=== PATIENT | male | born 1955 | race Caucasian/White ===

== ENCOUNTER 2018-08-13 17:09 | Emergency (ER) | payer OTHER ==
[~2018-08-13] VITALS: Ht 180.3 cm; Wt 83.9 kg
[2018-08-13 17:43] LABS: ABSOLUTE NEUTROPHILS 15.2 thou/uL (1.4-8.2); BASOPHILS 0.5 % (0.0-2.0); HEMATOCRIT 52.6 % (42.0-52.0); HEMOGLOBIN 18.3 gm/dL (14.0-18.0); LYMPHOCYTES 5.5 % (24.0-44.0); MCH 34.5 pg (26.0-34.0); MCHC 34.8 g/dL (28.0-37.0); MONOCYTES 5.7 % (1.0-8.0); PLATELET COUNT 223 thou/uL (150-400); POLYS 88.3 % (36.0-66.0); RBC 5.31 mil/uL (4.50-6.00); RDW 12.8 % (10.5-14.5); WBC 17.3 thou/uL (4.0-11.0)
[2018-08-13 17:46] LABS: CALCIUM 9.3 mg/dL (8.5-10.1); POTASSIUM 4.1 mmol/L (3.5-5.1)
[2018-08-13 17:52] LABS: ALBUMIN 3.9 g/dL (3.4-5.0); TOTAL BILIRUBIN 0.5 mg/dL (<0.1-1.0); TOTAL PROTEIN 7.6 g/dL (6.4-8.2)
[2018-08-13 19:08] LABS: URINE CLARITY CLEAR; URINE COLOR YELLOW; URINE PROTEIN (DIPSTICK) 1+ (Negative); URINE SPECIFIC GRAVITY > 1.030 (1.005-1.035)
[2018-08-13 19:09] LABS: ICTOTEST (BILI CONFIRMATORY) Negative (Negative); URINE BILIRUBIN NEGATIVE (Negative); URINE BLOOD NEGATIVE (Negative); URINE GLUCOSE-RANDOM* NEGATIVE (Negative); URINE KETONES NEGATIVE (Negative); URINE LEUKOCYTES-REFLEX NEGATIVE (Negative); URINE NITRITE-REFLEX NEGATIVE (Negative)
[2018-08-13 19:12] LABS: SQUAMOUS 0-3 Few /LPF (0-3)
[2018-08-13 19:13] LABS: URINE WBC-REFLEX 0-5 Rare /HPF (0-5)
[2018-08-13 19:14] LABS: BACTERIA-REFLEX None Seen /HPF (None Seen); CASTS None Seen /LPF (None Seen); CRYSTALS None Seen /LPF (None Seen); MUCUS >6 Heavy strn/LPF (None Seen); URINE RBC 0-2 Rare /HPF (0-2)
[2018-08-13] MEDS ORDERED: TESSALON PERLE100 MG PO (19:38)
[2018-08-13] MEDS ORDERED: PROVENTIL HFA6.7 G1 INH (19:38)
[2018-08-13] MEDS ORDERED: DOXYCYCLINE 10100 MG PO (19:38)
[2018-08-13] MEDS ORDERED: MOBIC15 MG PO (19:41)
[2018-08-13 20:13] VITALS: BP 171/114
--- NOTE | 2018-08-13 22:06 | EKG ---
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 : 1955 Requested By: Sergio Jorge Order Number: [id number] MD: Kevin Fregoso Measurements Intervals [place] Rate: 128 P: 40 [place]: 145 QRS: 83 QRSD: 98 T: -42 QT: 310 QTc: 453 Interpretive Statements Sinus tachycardia Borderline right axis deviation Probable left ventricular hypertrophy Nonspecific T abnormalities, inferior leads No previous ECG available for comparison Electronically Signed On 08-13-2018 22:05:45 ENROBING MACHINE OPERATOR by Kevin Fregoso [email or web address] <ELECTRONICALLY SIGNED> By: Kevin Fregoso MD 08/13/18 [id number] Kevin Fregoso MD /FARHAT
== END 2018-08-13 20:13 | disposition home or self-care (01) ==
LOC: ER 17:09
PROVIDERS: Physician Assistant
DX: J18.9 Pneumonia, unspecified organism (principal); F17.210 Nicotine dependence, cigarettes, uncomplicated; I10 Essential (primary) hypertension

== ENCOUNTER 2018-08-14 10:45 | Inpatient (IN) | payer OTHER ==
[~2018-08-14] VITALS: Ht 180.3 cm; Wt 108.8 kg
--- NOTE | ~2018-08-14 | HC ---
[facility] [place] [address] CONSULTATION Name: ANNABEL MUNOZ Room #: 211-P ADM IN M.R.#: [id number] Admission: 08/14/18 Attend Phys: Delano Horner MD Discharge: Date of : 55 Report #: [id number] THIS REPORT FOR: //name// CC: CHRISTIAN physician/PCP Delano Horner DATE OF SERVICE: 09/02/2018 CARDIOLOGY CONSULTATION REASON FOR CONSULTATION: Nonsustained VT. HISTORY OF PRESENT ILLNESS: The patient is a 62-year-old, with a history of tobacco abuse, who was admitted with fever, hemoptysis, underwent a CT scan on 08/14/2018 showing bilateral PEs. He was started on Eliquis therapy. He then developed a spontaneous pneumothorax as well as hemothorax. On 08/28/2018, underwent a bronchoscopy with right-sided VATS procedure with right thoracotomy and decortication had 2 chest tubes in. He developed worsening anemia and his anticoagulation was discontinued and he had an IVC filter placed. He has been improving over the past several days. This morning, he had a run of nonsustained VT lasting about 13 beats. He had no symptoms associated with this. He denies any chest pain or chest tightness. He denies PND or orthopnea. He denies presyncope or syncope. REVIEW OF SYSTEMS: Twelve-point review of systems: GENERAL: No fevers or chills. HEENT: No blurred vision or sore throat. CARDIOVASCULAR: As above. PULMONARY: No more hemoptysis. Breathing is improved. GASTROINTESTINAL: No nausea or vomiting. GENITOURINARY: No dysuria. MUSCULOSKELETAL: No myalgias or arthralgias. ENDOCRINE: No heat or cold intolerance. NEUROLOGIC: No focal weakness or stroke-like symptoms. PAST MEDICAL HISTORY: As per above. SOCIAL HISTORY: He quit smoking since hospitalized. FAMILY HISTORY: Noncontributory. ALLERGIES: None. MEDICATIONS: Include nebulizers, prednisone, lisinopril, amlodipine and he is off anticoagulation. [facility] [address] [place] [address] CONSULTATION Name: ANNABEL MUNOZ Room #: 211-[facility] [place] ..#: [id number] Admission: 08/14/18 Attend Phys: Delano Horner MD Discharge: Date of : 55 Report #: [id number] PHYSICAL EXAMINATION: VITAL SIGNS: Temperature is 37.6, pulse 112, respiratory rate 18, blood pressure 105/63, sats are 95% on room air. GENERAL: He is a thin male, older than stated age, in no acute distress. HEENT: Oropharynx is clear. Sclerae are anicteric. NECK: Supple. No thyromegaly or carotid bruits. HEART: Regular rate and rhythm with no murmurs, rubs or gallops. LUNGS: Clear to auscultation bilaterally. ABDOMEN: Soft, nontender, nondistended with no hepatosplenomegaly. EXTREMITIES: There is no clubbing, cyanosis or edema. Cranial nerves 2-12 are intact. LABORATORY DATA: White count 10, hemoglobin 11, platelets 278. Chemistry: Sodium 139, potassium 4.2, BUN 15, creatinine 0.9. Troponin is negative. ProBNP is 600. Telemetry shows sinus rhythm in the run of nonsustained VT. This was asymptomatic. His echocardiogram shows structurally normal heart. EF 55-60%, no regional wall motion abnormalities, no significant valvular disease. His 12-lead EKGs I have reviewed showed normal sinus rhythm with no ischemic changes. ASSESSMENT AND PLAN: 1. Nonsustained ventricular tachycardia. 2. Pulmonary embolism. 3. Deep venous thrombosis. 4. Hemoptysis. 5. Spontaneous pneumothorax. 6. Hemothorax secondary to pulmonary embolism. 7. IVC filter placement. 8. Chronic obstructive pulmonary disease. 9. Tobacco abuse. 10. Hypertension. PLAN: In summary, the patient is a 62-year-old with a run of nonsustained ventricular tachycardia. There is no ischemia per EKG. He has a structurally normal heart by echocardiogram. This is likely idiopathic nonsustained ventricular tachycardia that is asymptomatic. We will monitor on telemetry. We will optimize his electrolytes. Can consider an outpatient stress test in the future. By: [id number] [id number] Kevin Fregoso MD /nt
--- NOTE | ~2018-08-14 | HC ---
[facility] [place] [address] CONSULTATION Name: ANNABEL MUNOZ Room #: 211-P ADM IN M.R.#: [id number] Admission: 08/14/18 Attend Phys: Delano Horner MD Discharge: Date of : 55 Report #: [id number] THIS REPORT FOR: //name// CC: CHRISTIAN physician/PCP Delano Horner DATE OF SERVICE: 09/04/2018 IDENTIFYING INFORMATION: This is a 62-year-old male. HISTORY OF PRESENT ILLNESS: The patient was admitted with some respiratory discomfort. He notes that he was not sure if anything was the matter, so he walked down [facility] to have a friend of his check him out. He notes after a brief exam, they decided he needed to go to the hospital. He was having worsening shortness of breath and hemoptysis. The chest x-ray noted that there was possible pneumonia, so now the patient has had a several-week stay that has included management of pneumonia as well as anemia, hypertension, arrhythmia and hemoptysis. He notes he has been getting a bit depressed, anxious and frustrated because "I thought I would only be in here a couple of days." He has been using alprazolam on a p.r.n. basis and notes that "I feel it helps my pain too." PAST PSYCHIATRIC HISTORY: He has briefly had some interventions for depression and anxiety in the past. He notes that ultimately, he did not care for those medications because "they made as to he could not experience pleasure from anything, even music." FAMILY HISTORY: Denies. ALLERGIES: No known medication allergies. CURRENT MEDICATIONS: Include alprazolam 0.5 every 6 hours, prednisone taper, hydrocodone 2 every 4 hours as needed, Protonix 40 daily, albuterol inhaler, Zofran p.r.n. SOCIAL HISTORY: He lives alone. He has some family members who are supportive. 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 He has been dependent on nicotine, but wants to quit. He notes on residential, his alcohol use may have increased. He is planning on not returning to this either. MENTAL STATUS EXAMINATION: male, casually dressed, depressed mood, slightly anxious. Normal rate and rhythm in speech, he is articulate. No suicidal ideation, no homicidal ideation. No hallucinations, no delusions. Insight and judgment fair. DIAGNOSES: Major depressive disorder, recurrent, mild generalized anxiety [facility] [address] [place] [address] CONSULTATION Name: ANNABEL MUNOZ Room #: 211-P [facility] IN .R.#: [id number] Admission: 08/14/18 Attend Phys: Delano Horner MD Discharge: Date of : 55 Report #: [id number] disorder. RECOMMENDATIONS: Would recommend escitalopram, the generic for Lexapro, which can help with depression and anxiety. He seems to understand the risks of alprazolam as well as opioids as far as tolerance and dependence and will try to limit use of these. Also notable that he had a past trial of buspirone, but cannot remember if it was well tolerated or not. By: [id number] Billy Yung MD /nt
[~2018-08-14 10:45] MED LIST: DOXYCYCLINE 10100 MG PO; MOBIC15 MG PO; PROVENTIL HFA6.7 G1 INH; TESSALON PERLE100 MG PO
[2018-08-14 10:46] VITALS: BP 152/106
[2018-08-14 11:13] LABS: ABSOLUTE NEUTROPHILS 15.2 thou/uL (1.4-8.2); BASOPHILS 0.5 % (0.0-2.0); EOSINOPHILS 0.4 % (0.0-3.0); HEMATOCRIT 51.5 % (42.0-52.0); HEMOGLOBIN 17.7 gm/dL (14.0-18.0); LYMPHOCYTES 6.6 % (24.0-44.0); MCH 34.2 pg (26.0-34.0); MCHC 34.4 g/dL (28.0-37.0); MCV 99.4 fL (80.0-100.0); MONOCYTES 8.1 % (1.0-8.0); PLATELET COUNT 196 thou/uL (150-400); POLYS 84.4 % (36.0-66.0); RBC 5.18 mil/uL (4.50-6.00); RDW 13.1 % (10.5-14.5)
[2018-08-14 11:23] LABS: ANION GAP 12 mmol/L (7-16); BUN 11 mg/dL (7-18); CALCIUM 9.6 mg/dL (8.5-10.1); CHLORIDE 100 mmol/L (98-107); CO2 23 mmol/L (21-32); GLUCOSE 112 mg/dL (74-106); SODIUM 135 mmol/L (136-145)
[2018-08-14 11:31] LABS: ALBUMIN 3.7 g/dL (3.4-5.0); SGOT 17 U/L (15-37); SGPT 22 U/L (30-65); TOTAL PROTEIN 7.7 g/dL (6.4-8.2); TROPONIN-I <0.06 ng/mL (<0.06)
[2018-08-14 12:04] LABS: BE(vivo) -1.7 mmol/L (-2 to +3); HCO3 22.7 mmol/L (22.0-26.0); PCO2 37.5 mmHg (35.0-45.0); PO2 72.9 mmHg (80.0-100.0); pH 7.399 (7.360-7.450); sO2 94.7 % (92.0-98.0)
[2018-08-14 12:55] VITALS: BP 157/110
--- NOTE | 2018-08-14 13:24 | EKG ---
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: MAYNORRowdy : 1955 Requested By: Kasia Peters Order Number: [id number] MD: Kevin Fregoso Measurements Intervals [place] Rate: 127 P: 54 NC: 154 QRS: 68 QRSD: 98 T: -40 QT: 312 QTc: 454 Interpretive Statements Sinus tachycardia Probable left atrial enlargement Left ventricular hypertrophy Borderline T abnormalities, inferior leads Compared to ECG 08/13/2018 17:13:01 No significant changes Electronically Signed On 08-14-2018 13:24:31 TRAFFIC LINE PAINTER by Kevin Fregoso [email or web address] <ELECTRONICALLY SIGNED> By: Kevin Fregoso MD 08/14/18 1324 1107 06 Kevin Fregoso MD /FARHAT
[2018-08-14 13:31] VITALS: BP 165/98
[2018-08-14 14:20] VITALS: BP 169/100
--- NOTE | 2018-08-14 17:40 | NUR ---
[facility] A/O X4. SOB WITH EXERTION. C/O RIGHT BACK PAIN WITH COUGH. AFEBRILE. VSS. UP STANDBY. WILL KEEP MONITOR.
[2018-08-14 20:00] VITALS: BP 192/123
[2018-08-15] VITALS (8 sets, daily range): BP systolic 144–195; BP diastolic 96–131
[2018-08-15 04:22] LABS: CALCIUM 9.7 mg/dL (8.5-10.1); CREATININE 0.8 mg/dL (0.7-1.3); MAGNESIUM 1.9 mg/dL (1.8-2.4); POTASSIUM 4.3 mmol/L (3.5-5.1)
[2018-08-15 04:23] LABS: ABSOLUTE NEUTROPHILS 16.1 thou/uL (1.4-8.2); BASOPHILS 0.3 % (0.0-2.0); HEMATOCRIT 50.1 % (42.0-52.0); HEMOGLOBIN 16.8 gm/dL (14.0-18.0); LYMPHOCYTES 3.5 % (24.0-44.0); MCH 33.8 pg (26.0-34.0); MCHC 33.5 g/dL (28.0-37.0); MCV 100.8 fL (80.0-100.0); MONOCYTES 4.4 % (1.0-8.0); PLATELET COUNT 186 thou/uL (150-400); POLYS 91.8 % (36.0-66.0); RBC 4.97 mil/uL (4.50-6.00); RDW 13.6 % (10.5-14.5); WBC 17.6 thou/uL (4.0-11.0)
--- NOTE | 2018-08-15 07:59 | NUR ---
patient is alert and oriented. patient is sba patient calls appropiately. patient is not to walk in josue per dr catalan. patient is achs accu-cheks due to steroids. patient is on 2l nc which is not base line. patients pain is controlled with pain medication. patients blood pressure runs high. patient got 3 doses of hydralizine. patient is on a heparin drip. paitent is resting comfortabley in bed. wcm. patient is progressing to goals.
--- NOTE | 2018-08-15 13:17 | NUR ---
INITIAL ASSESSMENT: Pt evaluated for d/c planning needs. Reviewed chart and spoke with nurse and pt. Pt is alert and oriented. Pt lives alone and was independent with ADL's prior to admission. 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 Pt uses no DME and has not had home health in the past. Pt plans on returning home on d/c from hospital. Will remain available to assist as needed.
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
[2018-08-15 20:51] LABS: URINE BILIRUBIN NEGATIVE (Negative); URINE BLOOD NEGATIVE (Negative); URINE CLARITY CLEAR; URINE COLOR YELLOW; URINE GLUCOSE-RANDOM* NEGATIVE (Negative); URINE KETONES NEGATIVE (Negative); URINE NITRITE-REFLEX NEGATIVE (Negative); URINE PROTEIN (DIPSTICK) NEGATIVE (Negative); URINE UROBILINOGEN 0.2 E.U./dl (0.2-1.0)
[2018-08-15 20:52] LABS: URINE LEUKOCYTES-REFLEX NEGATIVE (Negative)
[2018-08-16] VITALS (7 sets, daily range): BP systolic 143–172; BP diastolic 86–119
[2018-08-16 04:13] LABS: CALCIUM 9.5 mg/dL (8.5-10.1); CREATININE 0.8 mg/dL (0.7-1.3); HEMATOCRIT 46.6 % (42.0-52.0); HEMOGLOBIN 15.8 gm/dL (14.0-18.0); MCHC 33.9 g/dL (28.0-37.0); MCV 100.3 fL (80.0-100.0); POTASSIUM 4.2 mmol/L (3.5-5.1); RBC 4.65 mil/uL (4.50-6.00); RDW 13.2 % (10.5-14.5); WBC 21.3 thou/uL (4.0-11.0)
--- NOTE | 2018-08-16 04:42 | NUR ---
PAITENT ALERT AND ORIENTED. PATIENT IS UP AD MARK. PATIENT NEEDED ONE DOSE OF PAIN MED AND ANXIETY MEDICATIONS THIS SHIFT. PATIENTS PAIN IS GETTING UNDER CONTROL NOW. PATIENT IS ON HEPARIN DRIP DOSE HAD TO BE INCREASED. PATIENT IS ON 4L NC. PATIENT HAS LOTS OF ANXITY ABOUT INSURANCE PAYING FOR ANTICOAGULANT AND PE IN LUNGS. PATIENTS BLOOD PRESSURES HAVE STILL BEEN HIGH. PATIENT IS NSR TO ST. PATIENT IS RESTING COMFORTABLEY ANXIOUS TO GO HOME. WMC. PATIENT IS PROGRESSING TO GOALS.
--- NOTE | 2018-08-16 17:17 | NUR ---
PT IS RESTED COMFORTABLY IN BED THIS SHIFT. HEPARIN GTT INFUSING PER PROTOCOL. PT C/O OF BACK AND CHEST PAIN AND WAS MEDICATED PER OCT. BP STABLE THIS SHIFT. 4L 02 VIA NC. PT REQUIRES SBA TO BR. PT IS PROGRESSING TOWARD POC GOALS, WILL CONTINUE TO MONITOR THROUGHOUT SHIFT.
[2018-08-17] VITALS (7 sets, daily range): BP systolic 141–175; BP diastolic 90–115
--- NOTE | 2018-08-17 02:06 | NUR ---
resting quietly now, after taking his prescribed anti-anxiety medication. continues on iv heparin as per protocal. calls for assist out of bed. using the urinal most of the time so her stays close to the bedside. no other concerns voiced. careplan reviewed.
[2018-08-17 05:52] LABS: PROTIME 9.4 Seconds (9.3-11.4)
[2018-08-17 10:11] LABS: HEMATOCRIT 44.2 % (42.0-52.0); MCH 33.6 pg (26.0-34.0); MCV 98.7 fL (80.0-100.0); RBC 4.48 mil/uL (4.50-6.00); RDW 13.5 % (10.5-14.5); WBC 17.2 thou/uL (4.0-11.0)
[2018-08-17 10:23] LABS: CALCIUM 9.7 mg/dL (8.5-10.1); CREATININE 0.9 mg/dL (0.7-1.3); MAGNESIUM 2.1 mg/dL (1.8-2.4); POTASSIUM 3.7 mmol/L (3.5-5.1)
--- NOTE | 2018-08-17 15:04 | NUR ---
Assumed care of patient at 0700. Vitals have been stable - BP elevated this morning. Hydralazine PRN given and Amlodipine started. Recheck shows improvement. Complaints of headache this afternoon, Tylenol administered. Patient also has PRN Xanax for anxiety. Remains on 3L NC, still SOB at times, especially with exertion, but patient feels is starting to improve. Encouraging deep breathing and coughing. Remains on IV antibiotics. Voiding per urinal. Remains on heparin gtt, therapeutic last evening. Will redraw again tonight, but heparin gtt discontinued and started on Eliquis BID. First dose given this afternoon before discontinuing heparin gtt. Patient up with SBA, fall precautions in place. Patient is anxious to discharge, but understands needing to be well enough before going home. Slowly progressing towards POC. Will continue to monitor.
[2018-08-18 04:05] VITALS: BP 183/118
--- NOTE | 2018-08-18 04:40 | NUR ---
SLEPT PART OF SHIFT. UP AT BEDSIDE TO VOID PER URINAL. MAINTAIN SAFE ENVIRONMENT. NO PRESENT COMPLAINTS OF PAIN. BLOOD PRESSURE ELEVATED AND PRN HYDRALIZINE GIVEN. MONITOR BLOOD PRESSURE NEEDED. WORKING ON GOALS AND PLAN OF CARE FOR NOC. PROGRESSING SLOWLY TOWARDS DISCHARGE GOALS. CONTINUE TO ASSES. NO BOWEL MOVEMENT SINCE THE 08/13/18. STATES WANTS MYRLAX WITH BREAKFAST.
[2018-08-18 05:32] LABS: HEMATOCRIT 44.1 % (42.0-52.0); HEMOGLOBIN 14.6 gm/dL (14.0-18.0); MCH 33.3 pg (26.0-34.0); MCHC 33.2 g/dL (28.0-37.0); MCV 100.4 fL (80.0-100.0); RBC 4.4 mil/uL (4.50-6.00); RDW 13.3 % (10.5-14.5); WBC 13.2 thou/uL (4.0-11.0)
[2018-08-18 05:53] LABS: CALCIUM 9.4 mg/dL (8.5-10.1); CREATININE 0.8 mg/dL (0.7-1.3); MAGNESIUM 2.2 mg/dL (1.8-2.4); POTASSIUM 3.7 mmol/L (3.5-5.1)
[2018-08-18 06:00] VITALS: BP 159/95
[2018-08-18 07:48] VITALS: BP 166/104
[2018-08-18 11:14] VITALS: BP 177/110
[2018-08-18 16:00] VITALS: BP 153/101
--- NOTE | 2018-08-18 16:18 | NUR ---
Assumed care of patient at 0700. BP elevated this shift; hydralazine administered PRN and BP scheduled meds adjusted per physician. Otherwise, VSS. Patient maintains oxygen saturations around 92-94% on RA. Some slight SOB with exertion, but for the most part, patient denies feeling SOB. This morning, patient reports feeling bad today - weak and dizzy at times, nauseous. Zofran administered and Miralax given this morning with BM this afternoon. Reports feeling better, improved nausea and bloating. Still feeling weak and not great this afternoon. Updated Dr. Weinstein and Dr. Mitchell; to monitor patient overnight and attempt discharge tomorrow. Patient up with SBA to bathroom. Calls appropriately. To walk hallways with nursing this evening. Attempting to progress towards POC. Will continue to monitor.
[2018-08-18 19:40] VITALS: BP 130/89
[2018-08-19] VITALS (7 sets, daily range): BP systolic 148–174; BP diastolic 94–116
--- NOTE | 2018-08-19 03:41 | NUR ---
SLEPT PART OF SHIFT. DENIES NEED FOR PAIN MEDICATION THIS SHIFT. STATES STILL WEAK AND SHORT OF AIR AT TIMES. O2 SATS 90-91%. UP WITH STANDBY ASSIST. WORKING ON GOALS AND PLAN OF CARE FOR NOC. PROGRESSING SLOWLY TOWARDS DISCHARGE GOALS. CONTINUE TO ASSES CLOESLY.
[2018-08-19 06:01] LABS: HEMOGLOBIN 14.9 gm/dL (14.0-18.0); MCH 33.2 pg (26.0-34.0); MCHC 33.1 g/dL (28.0-37.0); MCV 100.5 fL (80.0-100.0); RBC 4.47 mil/uL (4.50-6.00); RDW 13.6 % (10.5-14.5); WBC 13.3 thou/uL (4.0-11.0)
[2018-08-19 06:10] LABS: CALCIUM 9.3 mg/dL (8.5-10.1); CREATININE 0.7 mg/dL (0.7-1.3); MAGNESIUM 2.4 mg/dL (1.8-2.4); POTASSIUM 4.5 mmol/L (3.5-5.1)
--- NOTE | 2018-08-19 16:44 | NUR ---
Assumed care of Pt at 0700. Pt AOx3 in no acute distress. 88% SPO2 this AM - supplemental O2 provided. later on able to maintain SPO2 >90% on room air. rales noted to right base. CXR showing developing infiltrates/effusion. up w/ SBA. pt progressing toward poc goals.
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
[2018-08-20 05:20] VITALS: BP 172/106; BP 174/111
[2018-08-20 05:58] LABS: HEMATOCRIT 42.4 % (42.0-52.0); HEMOGLOBIN 14.4 gm/dL (14.0-18.0); MCH 33.7 pg (26.0-34.0); MCV 99.1 fL (80.0-100.0); RBC 4.28 mil/uL (4.50-6.00); RDW 13.5 % (10.5-14.5); WBC 14.6 thou/uL (4.0-11.0)
[2018-08-20 06:06] LABS: CALCIUM 8.6 mg/dL (8.5-10.1); CREATININE 0.7 mg/dL (0.7-1.3); MAGNESIUM 2.3 mg/dL (1.8-2.4); POTASSIUM 3.9 mmol/L (3.5-5.1)
[2018-08-20 07:30] VITALS: BP 165/115
[2018-08-20 11:22] LABS: HEMATOCRIT 42.4 % (42.0-52.0); HEMOGLOBIN 13.8 gm/dL (14.0-18.0); MCH 32.6 pg (26.0-34.0); MCHC 32.6 g/dL (28.0-37.0); MCV 99.8 fL (80.0-100.0); RBC 4.24 mil/uL (4.50-6.00); RDW 13.8 % (10.5-14.5); WBC 13.1 thou/uL (4.0-11.0)
[2018-08-20 12:02] VITALS: BP 144/91
[2018-08-20 17:00] VITALS: BP 157/99
--- NOTE | 2018-08-20 19:00 | NUR ---
PT DENIES SHORTNESS OF AIR..PLACED ON 2L CONTINOUS PER DR VENTURA...POSSIBLE THORACENTESIS TOMORROW..GIVEN EDUCATION SHEET FOR PATIENT TO REVIEW...
[2018-08-20 19:40] VITALS: BP 141/99
[2018-08-21 02:57] LABS: CALCIUM 8.4 mg/dL (8.5-10.1); CREATININE 0.7 mg/dL (0.7-1.3); MAGNESIUM 2.2 mg/dL (1.8-2.4); POTASSIUM 3.5 mmol/L (3.5-5.1)
[2018-08-21 03:18] LABS: HEMATOCRIT 37.6 % (42.0-52.0); HEMOGLOBIN 12.5 gm/dL (14.0-18.0); MCH 33.1 pg (26.0-34.0); MCHC 33.3 g/dL (28.0-37.0); MCV 99.4 fL (80.0-100.0); RBC 3.79 mil/uL (4.50-6.00); RDW 13.6 % (10.5-14.5); WBC 14.8 thou/uL (4.0-11.0)
[2018-08-21 03:40] VITALS: BP 145/99
[2018-08-21 07:41] VITALS: BP 150/99
--- NOTE | 2018-08-21 11:02 | NUR ---
Nutrition: pt admitted with SOB, Right sided pneumothorax, acute PE/DVT. Seen for LOS. Thoracentesis cancelled this morning and diet resumed. Pt reports stable weights and fair appetite, eating about 50% of meals. Voices he isn't active so not as hungry as usual. Orders meals. Encouraged > 75% intake of meals to maintain nutritional status. Consider low risk.
[2018-08-21 11:29] VITALS: BP 109/67
--- NOTE | 2018-08-21 15:20 | NUR ---
SW reviewed chart and spoke with nursing and attending physician. Pt with spontaneous pneumothorax, which is related to pulmonary embolus. Pt reamins on O2 and may need a chest tube if pneumothorax does not improve. SW is following to assist as needed with discharge planning.
[2018-08-21 15:25] VITALS: BP 126/70
--- NOTE | 2018-08-21 17:45 | NUR ---
PATIENT RESTED IN ROOM. CONT ON HEPARIN AND NO BLEEDING NOTED AT THIS TIME. HE DID GET OUT OF BED A FEW TIMES AND AMBULATED ABOUT THE ROOM. THORACENTESIS WAS CANCELLED BY DR VENTURA THIS AM HE CHEST XRAY SHOWED IMPROVEMENT. WILL CONT WITH PLAN OF CARE.
[2018-08-21 20:35] VITALS: BP 122/83
[2018-08-22 04:26] VITALS: BP 144/90
--- NOTE | 2018-08-22 05:34 | NUR ---
ASSUMED PT CARE AROUND 1900. A&OX4. DENIES ANY PAIN. PT IS ANXIOUS AT TIMES AND REQUESTED HIS ANXIETY MEDICATION. PT IS PLEASANT AND COOPERATIVE. PT SLEPT MOST OF THE NIGHT. RESP EVEN AND UNLABORED. HEPARIN GTT INFUSING. VSS. AFEBRILE. PROGRESSING SLOWLY TOWARD POC GOALS. WILL CONTINUE TO MONITOR FURTHER.
[2018-08-22 07:27] VITALS: BP 146/102
[2018-08-22 11:20] VITALS: BP 142/95
--- NOTE | 2018-08-22 14:42 | NUR ---
Assumed care of patient at 0700. BP elevated this morning, but received scheduled medications and shows improvement. Otherwise, VSS. Denies pain. Feels that breathing is improving, still some slight SOB with exertion. Encouraging deep breathing and coughing. Remains on 2L NC due to pneumothorax. Up with SBA, encouraging increasing activity. Walked in hallways with nursing this afternoon. Dr. Weinstein rounded today and okay to discontinue heparin gtt and restart on Eliquis. Patient received dose this afternoon. Slowly progressing towards POC. Will continue to monitor.
[2018-08-22 15:23] VITALS: BP 118/77
--- NOTE | 2018-08-22 15:54 | NUR ---
SW reviewed chart and spoke with nursing and attending physician. Pt is slowly progressing towards goals for discharge. Pt with pneumothorax and remains on continuous O2. Pt may be discharged home on Eliquis. Heparin gtt was discontinued today. Discharge home is anticipated in 1-2 days. Pt does not have health insurance and is Medicaid pending. Pt may need O2 at time of discharge. KIRK is following to assist as needed with discharge planning.
--- NOTE | 2018-08-22 17:58 | NUR ---
Patient had BM this afternoon - stool appears to be black / possible dark green. Does not appear tarry but hard to determine in toilet. Updated Dr. Mitchell. To obtain occult blood on next stool. Updated patient.
[2018-08-22 19:06] VITALS: BP 120/75
--- NOTE | 2018-08-22 23:04 | NUR ---
PATIENT TAKEN OFF MONITOR TODAY TO SHOWER FROM 1640 TO 1740. MONITOR TURNED OFF AGAIN AT 1808 WITH EPIC CUPID ANALYST NOTICING PATIENT WAS NOT MONITORED TILL 2241.
[2018-08-23 04:01] VITALS: BP 120/82
[2018-08-23 05:46] LABS: HEMATOCRIT 34.8 % (42.0-52.0); MCH 34.6 pg (26.0-34.0); MCHC 34.5 g/dL (28.0-37.0); MCV 100.4 fL (80.0-100.0); RBC 3.47 mil/uL (4.50-6.00); RDW 13.6 % (10.5-14.5); WBC 14.4 thou/uL (4.0-11.0)
[2018-08-23 07:31] VITALS: BP 143/90
--- NOTE | 2018-08-23 07:50 | NUR ---
PATIENT IS PROGRESSING IN HIS CARE PLAN. VITAL SIGNS STABLE WITH PATIENT HAVING NO COMPLAINTS OF PAIN OR NAUSEA. PATIENT DID COMPLAIN OF ANXIETY WHICH NURSE TREATED WITH PRN MEDICATIONS. FULLY ORIENTED, PATIENT IS ABLE TO CALL APPROPRIATELY FOR REQUESTS. BREATHING STABLE ON OXYGEN ORDER EVIDENCED BY OXYGEN SATURATION IN ACCEPTABLE RANGE. PATIENT UNABLE TO HAVE BOWEL MOVEMENT DESPITE PRN MEDICATION. STILL AWAITING STOOL SAMPLE. UP MULTIPLE TIMES TO THE BATHROOM WITH ASSISTANCE INCIDENT FREE. CONTINUE PLAN OF CARE.
[2018-08-23 09:05] VITALS: BP 135/99
--- NOTE | 2018-08-23 11:16 | NUR ---
Patient to have US thoracentesis on Tuesday. Heparin gtt will need to be turned off 1 hour before thoracentesis performed. Radiology and nursing to be in touch to coordinate timing.
[2018-08-23 11:32] VITALS: BP 129/82
--- NOTE | 2018-08-23 12:21 | NUR ---
Spoke with Wade, pharmacist, regarding starting heparin drip. Since patient received PO Eliquis this morning, to be more conservative on starting heparin. aPtt received, 28.9. Communicated with Wade - no bolus and to begin drip at 15 units / kg /hr. Redraw aPtt in 6 hours. Then bolus and increase / decrease drip per protocol.
--- NOTE | 2018-08-23 15:30 | NUR ---
SW reviewed chart and spoke with nursing and attending physician. Pt will have an US thoracentesis on Tuesday. GI consulted due to low hemoglobin. Pt may need to have a chest tube placed. Pt remains on 2L continuous O2. [facility] is following to assist as needed with discharge planning.
[2018-08-23 15:35] VITALS: BP 137/96
[2018-08-23 19:37] VITALS: BP 145/95
--- NOTE | 2018-08-23 19:59 | NUR ---
Assumed care of patient at 0700. Vitals have been stable. Patient reports feeling improvement; denies SOB and pain. PRN Xanax for anxiety. Spoke with Dr. Weinstein this morning regarding follow up CXR and CT chest yesterday. Patient will need to have thoracentesis and possible chest tube. Spoke with radiology and plan for Tuesday at this time. Eliquis back on hold and heparin gtt initiated. See previous note regarding communication with pharmacist about initation of heparin gtt. Now following and titrating / bolus per protocol. Patient did walk hallways today and sat up in chair for lunch. Up with SBA. Voiding per urinal. Patient voices feeling down and depressed about still being in the hospital. Awaiting stool sample to test for occult blood - no BM today. Spoke with Dr. Horner and nadeem for onetime dose of Miralax this evening. Not yet progressing towards POC. Will continue to monitor.
[2018-08-24 02:00] LABS: HEMATOCRIT 34.2 % (42.0-52.0); HEMOGLOBIN 11.2 gm/dL (14.0-18.0); MCH 32.9 pg (26.0-34.0); MCHC 32.8 g/dL (28.0-37.0); MCV 100.1 fL (80.0-100.0); RBC 3.42 mil/uL (4.50-6.00); RDW 13.7 % (10.5-14.5); WBC 16.8 thou/uL (4.0-11.0)
[2018-08-24 03:14] LABS: CALCIUM 8.5 mg/dL (8.5-10.1); CREATININE 0.7 mg/dL (0.7-1.3)
[2018-08-24 04:52] VITALS: BP 150/87
--- NOTE | 2018-08-24 05:11 | NUR ---
PATIENT IS PROGRESSING IN HIS CARE PLAN. VITAL SIGNS STABLE WITH PATIENT HAVING NO COMPLAINTS OF NAUSEA. PATIENT DID COMPLAIN OF PAIN IN CHEST UPON DEEP INSPIRATION WHICH WAS TREATED EFFECTIVELY WITH MEDICATION. FULLY ORIENTED, PATIENT WAS ABLE TO CALL APPROPRIATELY FOR NEEDS. HE SEEMS DEPRESSED AND HAS COMPLAINED OF FEELING ANXIOUS AT TIMES AND HAS BEEN TREATED EFFECTIVELY. PATIENT ON HEPARIN GTT WHICH HAS BEEN TITRATED APPROPRIATELY. NPO STATUS FROM MIDNIGHT ON IN ANTICIPATION OF TODAYS PROCEDURE. PATIENT IS BREATHING EFFECTIVELY EVIDENCED BY SPOT OXYGENATION CHECKS. CONTINUE PLAN OF CARE.
[2018-08-24 07:41] VITALS: BP 139/94
[2018-08-24 12:09] VITALS: BP 125/76
[2018-08-24 14:33] VITALS: BP 130/86
--- NOTE | 2018-08-24 18:32 | NUR ---
ASSUMED PATIENT CARE AT 0715. HEPARIN GTT INFUSING PER PROTOCOL. NO CHANGES NEEDED ON REDRAW THIS SHIFT. THORACENTESIS SCHEDULED FOR TOMORROW. STAND BY ASSIST. ANXIOUS ABOUT PROCEDURE. CONSENT NEEDS TO BE SIGNED. PATIENT WANTING TO SPEAK WITH PERFORMING DOCTOR BEFORE SIGNING. SLOWLY WORKING TOWARD GOALS.
[2018-08-24 19:18] VITALS: BP 126/89
[2018-08-25 03:30] VITALS: BP 107/67
--- NOTE | 2018-08-25 04:11 | NUR ---
ASSUMED PT CARE AROUND 1900. A&OX4. PT STOOL WAS POSITIVE FOR OCCULT BLOOD. NOTIFIED AUTOMOBILE REPOSSESSOR MANAGEMENT RECRUITER FOR HOSPITALIST. GI CONSULTED PER ORDER. PAGED GI DR MANAGEMENT RECRUITER. PT REMAINS ON HEPARIN GTT. NO S/S BLEEDING NOTED. C/O INTERMITTENT NON-CARDIAC CHEST PAIN. HYDROCODONE GIVEN WITH SOME RELIEF. PT SLEPT MOST OF THE NIGHT. RESP EVEN AND UNLABORED. PROGRESSING SLOWLY TOWARD POC GOALS. WILL CONTINUE TO MONITOR FURTHER.
[2018-08-25 07:23] LABS: HEMATOCRIT 35.5 % (42.0-52.0); MCH 33.9 pg (26.0-34.0); MCHC 33.8 g/dL (28.0-37.0); MCV 100.3 fL (80.0-100.0); RBC 3.53 mil/uL (4.50-6.00); RDW 13.9 % (10.5-14.5); WBC 20.2 thou/uL (4.0-11.0)
[2018-08-25 07:36] LABS: CALCIUM 8.8 mg/dL (8.5-10.1); CREATININE 0.9 mg/dL (0.7-1.3); POTASSIUM 4.3 mmol/L (3.5-5.1)
--- NOTE | 2018-08-25 12:33 | NUR ---
ASSUMED PATIENT CARE AT 0715. A&OX4. COMPLAINTS OF NON-CARDIAC CHEST PAIN. NORCO GIVEN FOR PAIN. XANAX GIVEN FOR ANXIETY. THORACENTESIS TODAY WITH ONE LITER TAKEN OFF. BANDAID OVER SITE WITH NO DRAINAGE. STAND BY ASSIST. GI ON CASE DUE TO POSITIVE OCCULT BLOOD. ON HEPARIN GTT. NO CHANGES NEEDED THIS MORNING BUT WAS OFF GTT FOR TWO HOURS FOR THORACENTESIS. PATIENT ANXIOUS ABOUT HOW LONG THEY WILL BE HERE. SLOWLY WORKING TOWARDS DC GOALS. ABLE TO MAKE NEEDS KNOWN.
[2018-08-25 13:28] LABS: CLARITY TURBID; COLOR RED; SOURCE RIGHT THORACENTESIS; TOTAL VOLUME 64 mL
[2018-08-25 13:34] LABS: SOURCE RIGHT THORACENTESIS
[2018-08-25 13:40] LABS: BF NUCLEATED CELLS 4188; BF RBC 407287
--- NOTE | 2018-08-25 14:34 | NUR ---
SW reviewed chart and spoke with nursing and attending physician. GI consult due to positive occult blodd. Pt is on heparin gtt and continuous O2. Pt had thoracentesis today. Pt is slowly progressing towards goals for discharge. SW is following to assist as needed with discharge planning.
[2018-08-25 15:12] LABS: BF MACROPHAGE 2; BF NEUTROPHILS 68
[2018-08-25 15:28] VITALS: BP 95/60
[2018-08-25 19:45] VITALS: BP 113/79
[2018-08-26] VITALS: BP 98/65
[2018-08-26 04:00] VITALS: BP 114/78
--- NOTE | 2018-08-26 04:03 | NUR ---
PATIENT IS ON 2L NC. PATIENT IS ALERT AND ORIENTED. PATIENT IS ON HEPARIN DRIP. PATIENTS PAIN IS TREATED WITH PAIN MEDIACTION. PATIENT TAKE ANXIETY MEDICATION WELL. PATIENT IS UP AD MARK. PATIENT CALLS OUT APPROPIATELY. PATIENT RESTING COMFORTABLEY IN BED. WCM. PATIENT IS PROGRESSING TO GOALS.WCM.
[2018-08-26 07:30] VITALS: BP 111/73
[2018-08-26 08:04] LABS: HEMATOCRIT 36.5 % (42.0-52.0); HEMOGLOBIN 12.2 gm/dL (14.0-18.0); MCH 33.4 pg (26.0-34.0); MCHC 33.4 g/dL (28.0-37.0); RBC 3.65 mil/uL (4.50-6.00); RDW 14.1 % (10.5-14.5); WBC 23.9 thou/uL (4.0-11.0)
[2018-08-26 11:44] VITALS: BP 107/63
--- NOTE | 2018-08-26 13:43 | NUR ---
ASSUMED CARE OF PATIENT 0700. A/OX4, PLEASANT,CAMPLIANT WITH CARES, VSS, ABLE TO MAKE NEEDS KNONW. HEPARIN PER PROTOCOL, MONITORING FOR S/S. PT STATES HE'S TIRED. STEADY WITH BATHROOM PRIVILEDGES, CALL LIGHT IN REACH.
[2018-08-26 16:30] VITALS: BP 109/69
[2018-08-26 19:08] VITALS: BP 112/74
--- NOTE | 2018-08-27 02:45 | NUR ---
PATIENT IS ALERT AND ORIENTED. PATIENT IS UP AD MARK. PATIENT IS ON 2LNC. PATIENT IS NSR ON TELE. PATIENTS PAIN AND ANXIETY ARE TREATED WITH PAIN MEDICATION. PATIENT IS PENDING FOR POSSIBLE EGD FOR GI BLEED DUE TO OCCULT BLOOD. PATIENT IS ON HEPARIN DRIP AND HAS BEEN THERAPUTIC THE LAST COUPLE DAYS. PATIENT IS RESTING COMFORTABLEY IN BED. WCM. PATIENT IS PROGRESSING TO GOALS.
[2018-08-27 03:58] VITALS: BP 116/78
[2018-08-27 07:25] VITALS: BP 137/89
[2018-08-27 07:56] LABS: HEMATOCRIT 32.8 % (42.0-52.0); HEMOGLOBIN 11.2 gm/dL (14.0-18.0); MCH 33.9 pg (26.0-34.0); MCV 99.8 fL (80.0-100.0); RBC 3.29 mil/uL (4.50-6.00); RDW 13.7 % (10.5-14.5); WBC 21.2 thou/uL (4.0-11.0)
[2018-08-27 11:09] VITALS: BP 141/87
[2018-08-27 13:06] LABS: BODY FLUID AMYLASE 25 U/L (()); BODY FLUID GLUCOSE 55 mg/dL (()); BODY FLUID LDH 736 IU/L (()); BODY FLUID PROTEIN 3.1 g/dL (())
[2018-08-27 15:22] VITALS: BP 119/79
--- NOTE | 2018-08-27 18:40 | NUR ---
PT EDUCATED ON IVC FILTER WHICH WAS PLACED @ NOON TODAY TOP RT IJ..HASEEB C/D/I..ALSO WAS EDUCATED PER DR REGALADO AND DR WARNER REGARDING SURGERY TOMORROW AM..CONSENT SIGNED..
[2018-08-27 19:25] VITALS: BP 111/70
[2018-08-28 04:00] VITALS: BP 141/92
--- NOTE | 2018-08-28 05:35 | NUR ---
PT MAKING PROGRESS TOWARDS GOALS. ON O2 AT 3L PER NC THROUGHOUT THE NIGHT. PT STATED "I REALLY THINK I'VE IMPROVED ALOT." HAS DENIED ANY SOA WHILE AT REST. ENOURAGEMENT AND SUPPORT GIVEN FOR POSSIBLE THORACOTOMY TODAY.
[2018-08-28 05:36] LABS: HEMOGLOBIN 10.5 gm/dL (14.0-18.0); MCH 33.9 pg (26.0-34.0); MCV 99.7 fL (80.0-100.0); RBC 3.11 mil/uL (4.50-6.00)
[2018-08-28 05:51] LABS: CALCIUM 9.1 mg/dL (8.5-10.1); CREATININE 0.8 mg/dL (0.7-1.3); POTASSIUM 4.2 mmol/L (3.5-5.1)
--- NOTE | 2018-08-28 13:40 | NUR ---
FOLLOWING FOR DC PLANNING. CLINICAL INFO REVIEWED. PT IS IN ICU NOW POST RIGHT THORACOSCOPY AND RIGHT THORACOTOMY WITH DECORTICATION WITH FINDINGS OF LOCULATED PLEURAL EFFUSION AND NECROTIC AREA OF LOWER LOBE. WILL FOLLOW TO ASSIST WITH COORDINATION OF NEEDS AT DC, PT IS WITHOUT MEDICAL INSURANCE AND IN MEDICAID PENDING STATUS.
--- NOTE | 2018-08-28 13:52 | NUR ---
ASSUMED CARE OF PT AT 1220 THIS SHIFT. PT IS POST THOROCOTOMY, ARRIVED TO UNIT WITH 2 CHEST TUBES. PT IS COOPERATIVE, HOWEVER PT IS IN PAIN WITH PHENTANYL SUPERVISOR COMMERCIAL FISH HATCHERY PUMP. PT HAS AN ART LINE. PT ARRIVED ON 15L NONREBREATHER MASK.
--- NOTE | 2018-08-28 15:10 | NUR ---
SW reviewed chart and spoke with nursing and attending physician. Pt was transferred to ICU following VATS. Pt has Medicaid application pending per [employer]. SW is following to assist as needed with discharge planning.
[2018-08-28 19:22] VITALS: BP 118/76
[2018-08-29] VITALS (23 sets, daily range): BP systolic 101–140; BP diastolic 57–83
--- NOTE | 2018-08-29 04:44 | NUR ---
Pt is making some progress in this shift. Able to wean down O2 to 2 liters. Pulmonary toilets in progress. I/S, deep breathing and coughing hourly while awakes. Using fentanyl PRODUCT DEVELOPMENT ASSISTANT properly. Pain had been adequated control. No s/sx of any side effects indicates. CTs are inplaced. CTs#1 with very small air leak noted at times. Drainage is evp operations in color this am. Taking PO well, lalit full liquid diet. will advance him to regular diet. Cristian nesbitt, made great UO. Continue working toward goals.
[2018-08-29 04:45] LABS: HEMATOCRIT 30.2 % (42.0-52.0); HEMOGLOBIN 10.1 gm/dL (14.0-18.0); MCH 33.4 pg (26.0-34.0); MCHC 33.4 g/dL (28.0-37.0); RBC 3.02 mil/uL (4.50-6.00); RDW 13.8 % (10.5-14.5); WBC 17.8 thou/uL (4.0-11.0)
[2018-08-29 04:47] LABS: CALCIUM 9.1 mg/dL (8.5-10.1); CREATININE 0.6 mg/dL (0.7-1.3); POTASSIUM 4.2 mmol/L (3.5-5.1)
--- NOTE | 2018-08-29 09:09 | NUR ---
Followup: s/p VATS 08/28. ICU rounds, pt feeling better. BG controlled, has regular diet ordered. Wts up about 10-15 lb. Continue to encourage adequate po intake. Remains low nutrition risk
--- NOTE | 2018-08-29 13:18 | NUR ---
ASSUMED CARE OF PT AT 0700 THIS SHIFT. PT HAS BEEN COOPERATIVE, HAS BEEN HAVING PAIN FROM CHEST TUBE SITE, BUT MORE TOLERABLE TODAY. PT IS TOLERATING BEING ON 2L NC, AND STILL USING FENTANYL PLATE FINISHER PUMP. PT HAS HAD GOOD APPETITE THIS SHIFT. PT IS CURRENTLY RESTING COMFORTABLY IN ROOM.
--- NOTE | 2018-08-29 15:06 | PATH ---
[facility] [address] [address] PATHOLOGY RPT PROCEDURE Name: ANNABEL YO Room #: 240-P ADM IN M.R.#: [id number] Admission: 08/14/18 Date of : 55 Discharge: Report #: [id number] Path Case #: [id number] LCA Accession Number: [id number] . 01 Material submitted: . PART A: SUPERIOR SEGMENT RLL BIOPSY PART B: RIGHT PLEURAL EXUDATE . 01 Clinical history: . Right pleural effusion Clotted hemothorax . 02 Diagnosis: A. Lung, superior segment right lower lobe, bronchial biopsy: - Mild chronic inflammation. - Benign bronchial mucosa as well as cartilage. - Negative for dysplasia or malignancy. . B. Pleura, right pleural exudate: - Marked acute inflammation associated with fibrinoid degeneration, consistent with an exudate. - Pleural surface with reactive mesothelial hyperplasia and marked acute inflammation. . (IUV:mml; 08/29/2018) QLM/08/29/2018 . 02 Electronically signed: . Vida Alberto MD, Pathologist NPI- [id number] . 01 Gross description: . A. The specimen is received in formalin, labeled "Annabel Yo, superior segment right lower lobe biopsy" and consists of 2 fragments of mcconnell tissue measuring 0.3 x 0.3 x 0.2 cm each. They are entirely submitted in A1. . B. The specimen is received in formalin, labeled "Annabel Yo, right pleural exudate" and consists of multiple segments of purple-pink soft tissue admixed with clot measuring 9.8 x 9.0 x 2.5 cm in aggregate. Loom Starter tissue is submitted in B1-B2. (SDY; 08/28/2018) SYU/SYU . 02 Pathologist provided ICD-10: J98.4, J90 . 02 CPT . [address] [address] PATHOLOGY RPT PROCEDURE Name: ANNABEL YO Room #: 240-P ADM IN M.R.#: [id number] Admission: 08/14/18 Date of : 55 Discharge: Report #: [id number] Path Case #: [id number] Specimen Comment: A courtesy copy of this report has been sent to Specimen Comment: [phone], . Specimen Comment: Report sent to / DR REGALADO Performed at: [address], [employer], [place] [id number] MD Roddy Michele MD Phone: [phone] Performed at: [address] [id number] MD Vida Alberto MD Phone: [phone]
--- NOTE | 2018-08-29 15:53 | NUR ---
POD #1 RIGHT THORACOTOMY WITH DECORTICATION. CHEST TUBES REMAIN. ON 2 L NC O2WITH SAT IN UPPER 90'S. THERAPIES ORDERED. CM TO FOLLOW TO COORDINATE NEEDS AT [place].
--- NOTE | 2018-08-29 21:56 | NUR ---
GCS 15. A&O X4. FC, JOSE RAUL. COOPERATIVE. PLEASANT DEMEANOR. ANXIOUS AT TIMES. PAIN MANAGEMENT WITH FENTANYL WOOD ROOM SUPERVISOR. INCREASED PAIN WITH COUGHING, DEEP BREATHING, AND REPOSITIONING. SINUS RHYTHM ON MONITOR. O2 SAT > 92% ON 2L PER NC. DENIES SOA. 2 RIGHT LATERAL CHEST TUBE SITES IN PLACE. -20CM SUCTION. NO AIR LEAK. SANGUINEOUS DRAINAGE. DRESSING CLEAN, DRY, AND INTACT. TOLERATING REGULAR DIET. HUTCHINSON TO DD. SMALL VOLUME URINE LEAKING FROM HUTCHINSON. MOISTURE ASSOCIATED DERMATITIS TO SCROTUM AND INNER THIGHS. ANTIFUNGAL BARRIER CREAM APPLIED TO AFFECTED AREA. VITAL SIGNS AND ASSESSMENTS DOCUMENTED. WILL CONTINUE TO MONITOR.
[2018-08-30] VITALS (18 sets, daily range): BP systolic 99–148; BP diastolic 63–99
--- NOTE | 2018-08-30 05:30 | NUR ---
PT REMAINS STABLE IN THIS SHIFT. RESTING WELL T/O THE NIGHT. HE REPORTED PAIN WHEN TAKING A DEEP BREATH. ENCOURAGE HIM TO USE BEER COIL CLEANER FOR PAIN CONTROL. CTs REMAINS INPLACED AND CONTINUE TO FUNCTION PROPERLY. NO AIR LEAK INDICATES.VERY LITTLE DRAINAGE NOTED. VSS. CONTINUE PROGRESSING TOWARD GOALS.
[2018-08-30 05:51] LABS: HEMATOCRIT 30.3 % (42.0-52.0); HEMOGLOBIN 10.5 gm/dL (14.0-18.0); MCH 34.5 pg (26.0-34.0); MCHC 34.6 g/dL (28.0-37.0); MCV 99.8 fL (80.0-100.0); RBC 3.04 mil/uL (4.50-6.00); RDW 13.8 % (10.5-14.5)
[2018-08-30 06:03] LABS: CALCIUM 9.3 mg/dL (8.5-10.1); CREATININE 0.7 mg/dL (0.7-1.3); POTASSIUM 4.2 mmol/L (3.5-5.1)
--- NOTE | 2018-08-30 09:02 | NUR ---
OTR EXPLAINED OT EVAL ORDER AND REASONS FOR. PT ASKED THAT IT BE DEFERRED UNTIL TUBES ARE OUT OF CHEST. PT BELIEVES THAT ONCE THAT HAPPENS HE WILL NOT NEED ANY ASSISTANCE. SIGNIFICANT PAIN THIS MORNING. WANTS TO GO HOME SOON ABLE. OT TO RETURN IN MORNING
--- NOTE | 2018-08-30 13:22 | NUR ---
SKID STRAPPER FENTANYL PUMP CLEARED - 290MCG TOTAL GIVEN OVER 10.19 HOURS - 210MCG TOTAL ADMINISTERED BY PT
--- NOTE | 2018-08-30 20:40 | NUR ---
ASSUMED CARE OF PT AT APPROX 1700. PT A&OX4, TRANSFERS WITH ASSIST DUE TO MULTIPLE LINES AND TUBES. PT HAS 4 CHEST TUBES CONECTED TO TWO ATRIUMS. MINIMAL OUTPUT. PT HAS BONDING MOLDER PUMP WITH FENT. WILL CONT WITH POC.
[2018-08-31 04:04] VITALS: BP 125/77
--- NOTE | 2018-08-31 05:39 | NUR ---
0540 - JOSE GUADALUPE. PT USING MINIMUM FENTANYL AND RELYING VICODIN FOR PAIN RELIEF. HE WAS ABLE TO GET A FEW HOURS OF SLEEP. HAD FEW NEEDS AND STATES NO NEW COMPLAINTS.
--- NOTE | 2018-08-31 06:12 | NUR ---
0620 - pT HAD A TOTAL OF ABOUT 10 MLS OF DRAINAGE TOTAL INTO THE TWO ATRIUMS.
[2018-08-31 07:38] VITALS: BP 119/74
[2018-08-31 10:11] LABS: HEMATOCRIT 30.3 % (42.0-52.0); HEMOGLOBIN 10.4 gm/dL (14.0-18.0); MCH 34.2 pg (26.0-34.0); MCHC 34.3 g/dL (28.0-37.0); MCV 99.8 fL (80.0-100.0); RBC 3.03 mil/uL (4.50-6.00); RDW 13.8 % (10.5-14.5); WBC 11.8 thou/uL (4.0-11.0)
[2018-08-31 10:27] LABS: CALCIUM 9.4 mg/dL (8.5-10.1); CREATININE 0.8 mg/dL (0.7-1.3); MAGNESIUM 2.1 mg/dL (1.8-2.4); POTASSIUM 4.1 mmol/L (3.5-5.1)
[2018-08-31 11:46] VITALS: BP 107/63
--- NOTE | 2018-08-31 13:20 | NUR ---
PT WALKED 100 FT WITH WALKER WITH THERAPY THIS AM, OK FOR DC HOME. PT IS MEDICAID PENDING SO UNABLE TO SET UP HOME HEALTH THERAPIES OR DO OUTPT THERAPY. REMAINS ON O2 2 L NC. LIVES ALONE. MAY NEED HOME O2 AND WALKER AT DC. CM TO FOLLOW TO ASSSIT WITH COORDINATION OF DC NEEDS.
--- NOTE | 2018-08-31 13:40 | NUR ---
PATIENT NOW WITH CHEST TUBES OUT. HAS BEEN UP WALKING WITH PHYSICAL THERAPY. HE HOPES TO GO HOME TOMORROW. HE POLITELY REFUSED OT EVAL AND DOES NOT FEEL HE NEEDS ANY OT FOLLOW UP AT HOME.. PT WAS EXHAUSTED THIS AFTERNOON, WANTING TO REST.NO OT
--- NOTE | 2018-08-31 15:13 | 2DMMODE ---
[facility] [place] [address] 2 D/M-MODE ECHOCARDIOGRAM Name: ANNABEL MUNOZ Room #: 211-P [facility] IN ..#: [id number] Admission: 08/14/18 Attend Phys: Delano Horner MD Discharge: Date of : 55 Date of Service: 08/14/18 1533 Report #: [id number] THIS REPORT FOR: //name// APPROVED REPORT Study performed: 08/14/2018 13:39:25 EXAM: Comprehensive 2D, Doppler, and color-flow Echocardiogram Patient Location: ER Status: routine BSA: 2.04 HR: 99 bpm BP: 157/110 mmHg Rhythm: Tachycardia Other Information Study Quality: Adequate Indications Short of breath. 2D Dimensions RVDd: 36.08 mm IVSd: 12.59 (7-11mm) LVOT Diam: 23.15 (18-24mm) LVDd: 49.70 mm PWd: 12.58 (7-11mm) LVDs: 32.25 (25-40mm) Aortic Root: 39.36 mm Volumes Left Atrial Volume (Systole) Single Plane 4CH: 40.42 mL Single Plane 2CH: 43.33 mL LA ESV Index: 23.00 mL/m2 Aortic Valve AoV Peak Smith.: 1.21 m/s AO Peak Gr.: 5.83 mmHg LVOT Max P.04 mmHg LVOT Max V: 0.87 m/s EMILIANO Vmax: 3.04 cm2 Mitral Valve E/A Ratio: 0.5 MV Decel. Time: 191.55 ms MV E Max Smith.: 0.48 m/s MV A Smith.: 0.89 m/s [facility] [address] [place] [address] 2 D/M-MODE ECHOCARDIOGRAM Name: ANNABEL MUNOZ Room #: 211-[facility] IN ..#: [id number] Admission: 08/14/18 Attend Phys: Delano Horner MD Discharge: Date of : 55 Date of Service: 08/14/18 1533 Report #: [id number] MV PHT: 55.55 ms IVRT: 62.28 ms Pulmonary Valve PV Peak Smith.: 0.85 m/s PV Peak Gr.: 2.92 mmHg Tricuspid Valve TR Peak Smith.: 3.11 m/s TR Peak Gr.: 38.81 mmHg Left Ventricle The left ventricle is normal size. Mild concentric left ventricular hypertrophy. Left ventricular systolic function is normal. LVEF is 55-60%. Mild diastolic dysfunction is present (impaired relaxation pattern). Right Ventricle The right ventricle is normal size. The right ventricular systolic function is normal. Atria The left atrium size is normal. The right atrium size is normal. Aortic Valve The aortic valve is normal in structure. Trace aortic regurgitation. There is no aortic valvular stenosis. Mitral Valve The mitral valve is normal in structure. There is no mitral valve regurgitation noted. No evidence of mitral valve stenosis. Tricuspid Valve The tricuspid valve is normal in structure. Mild tricuspid regurgitation. Estimated PAP is 39mmHg plus the right atrial pressure. Pulmonic Valve The pulmonary valve is normal in structure. Trace pulmonic regurgitation. Great Vessels The aortic root is normal in size. IVC is not well visualized. [facility] [address] [place] [address] 2 D/M-MODE ECHOCARDIOGRAM Name: ANNABEL MUNOZ Room #: 211-[facility] IN M.R.#: [id number] Admission: 08/14/18 Attend Phys: Delano Horner MD Discharge: Date of : 55 Date of Service: 08/14/18 1533 Report #: [id number] There is no pericardial effusion. <Conclusion> The left ventricle is normal size. Mild concentric left ventricular hypertrophy. Left ventricular systolic function is normal. Mild diastolic dysfunction is present (impaired relaxation pattern). The right ventricle is normal size. The left atrium size is normal. The aortic valve is normal in structure. Trace aortic regurgitation. The mitral valve is normal in structure. Mild tricuspid regurgitation. Estimated PAP is 39mmHg plus the right atrial pressure. <ELECTRONICALLY SIGNED> By: Josue Black MD 08/14/18 1533 1533 1533 Josue Black MD /INF
[2018-08-31 15:33] VITALS: BP 107/63
[2018-08-31 19:57] VITALS: BP 124/75
[2018-09-01] VITALS (7 sets, daily range): BP systolic 102–128; BP diastolic 58–69
[2018-09-01 04:53] LABS: HEMATOCRIT 33.5 % (42.0-52.0); HEMOGLOBIN 11.1 gm/dL (14.0-18.0); MCH 32.9 pg (26.0-34.0); MCHC 33.2 g/dL (28.0-37.0); RBC 3.39 mil/uL (4.50-6.00); RDW 13.6 % (10.5-14.5); WBC 11.4 thou/uL (4.0-11.0)
[2018-09-01 05:09] LABS: CALCIUM 9.4 mg/dL (8.5-10.1); CREATININE 0.8 mg/dL (0.7-1.3); MAGNESIUM 2.1 mg/dL (1.8-2.4); POTASSIUM 4.2 mmol/L (3.5-5.1)
--- NOTE | 2018-09-01 05:15 | NUR ---
JOSE GUADALUPE. PT PAIN WAS MOSTLY CONTROLLED. HE WAS ABLE TO GET SOME SLEEP BUT WOKE UP IN PAIN. TREATED PROMPTLY.
--- NOTE | 2018-09-01 14:49 | NUR ---
Vessel Crew Member visited with the pt at bedside regarding dc planning. Pt is hoping to dc to home tomorrow. He is feeling better and more mobile since chest tube removed. Therapy had seen him today and have recommended a rwalker for home use. Pt's medicaid application is pending. Rwalker vouchered per cm to facilitate safe dc. Provider pluse to issue one to the pt for home use. The pt reports his sister can provide transport home tomorrow and help him get any scripts filled. Would encourage him to use the [employer] $4 list or [facility]. Pt to f/u with his specialists and establish a pcp. Al[place] packet provided.
--- NOTE | 2018-09-01 14:51 | NUR ---
PT. DISCHARGING TO HOME IN AM 09/02. HOSPITAL IS PROVIDING PT. WITH ROLLER WALKER FOR HOME. SW HAS SPOKEN WITH PT. AND HE HAS NOT FURTHER NEEDS.
--- NOTE | 2018-09-01 16:10 | O ---
[facility] [place] [address] [place] [address] OPERATIVE REPORT Name: ANNABEL MUNOZ Room #: 211-P ADM IN M.R.#: [id number] Admission: 08/14/18 Attend Phys: Delano Horner MD Discharge: Date of : 55 Report #: [id number] THIS REPORT FOR: //name// CC: [facility] physician/PCP Delano Horner DATE OF SERVICE: 08/28/2018 PREOPERATIVE DIAGNOSIS: Loculated right pleural effusion. POSTOPERATIVE DIAGNOSIS: Loculated right pleural effusion. PROCEDURE: Bronchoscopy, right video-assisted thoracoscopy, right thoracotomy with decortication. SURGEON: Mansoor Glez MD ANESTHESIA: General. INDICATIONS: The patient is a 62-year-old seen for Dr. Waggoner. The patient presented approximately a week ago with hemoptysis and shortness of breath. Pulmonary embolism and deep vein thrombosis were diagnosed and anticoagulation was started. Unfortunately, the patient developed a right hemothorax. Thoracentesis was done, but despite this, a large loculated pleural effusion remained and our help was requested. FINDINGS AND TECHNIQUE: After general anesthesia was established, flexible diagnostic bronchoscopy was performed. No specific endobronchial lesions were noted. There was some crowding with the lower lobe bronchi, particularly in the superior segmental orifice. Biopsies were taken in this area and submitted for permanent pathology. A double lumen endotracheal tube was placed and the patient was positioned with right side up. Exposure was obtained through video-assisted thoracoscopy ports. We noted a large amount of blood and clot in the chest along with fibrin stranding adherent to the lung and felt that it would be best to perform a thoracotomy for decortication. The incision was extended to a posterolateral thoracotomy. Chest was entered through the fifth interspace. As mentioned, a large amount of blood and clot was removed approximately 2 liters of blood was standing in the chest. Once the effusion was drained, the lung was decorticated. The entire lung was covered with organizing fibrin from [facility] [address] [place] [address] OPERATIVE REPORT Name: ANNABEL MUNOZ Room #: 211-P ADM IN M.R.#: [id number] Admission: 08/14/18 Attend Phys: Delano Horner MD Discharge: Date of : 55 Report #: [id number] the blood. Ultimately, we were able to decorticate the entire lung. In the lower lobe region, there was an area of necrosis in the posterior base. Samples of this were sent for pathology and culture. When the decortication was complete, the chest was irrigated with copious amounts of warm saline and then 4 chest tubes were placed to drain the anterior, lateral, posterior, and inferior pleural regions. Hemostasis was ascertained and then the chest was closed in layers. The patient was taken to the recovery area in good condition having tolerated the procedure well. All counts were reported as correct. <ELECTRONICALLY SIGNED> By: Mansoor Glez MD 09/01/18 1610 1303 [id number] Mansoor Glez MD /bryan
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
--- NOTE | 2018-09-02 03:42 | NUR ---
ASSUMED CARE OF PATIENT AROUND 1900. PATIENT C/O PAIN ON R SIDE EXTENDING IN BACK. PRINTED EDUCATION GIVEN TO PATIENT RE: OPIOID USE AND EFFECTS. PATIENT AGREEABLE TO ATTEMPT 1 TAB HYDROCODONE INSTEAD OF 2 FOR THE TIME. CALLED OUT AROUND MIDNIGHT FOR 2 TABS PAIN HAD BECOME MUCH WORSE. PATIENT ALSO STATES THAT HE FEELS THAT HE NEEDS TO BE ON ANTIDEPRESSANTS AND MAY NEED TO SEE A PSYCHIATRIST FOR ASSISTANCE WITH DEPRESSION. WILL CONSULT CASE MANAGEMENT FOR ASSISTANCE ON THIS. PATIENT IS PROGRESSING TOWARDS GOALS, WILL CONTINUE TO MONITOR.
[2018-09-02 05:29] LABS: HEMATOCRIT 34.9 % (42.0-52.0); HEMOGLOBIN 11.8 gm/dL (14.0-18.0); MCHC 33.9 g/dL (28.0-37.0); MCV 100.3 fL (80.0-100.0); RBC 3.48 mil/uL (4.50-6.00); RDW 13.8 % (10.5-14.5); WBC 10.9 thou/uL (4.0-11.0)
[2018-09-02 05:38] VITALS: BP 134/83
[2018-09-02 05:40] LABS: CALCIUM 9.6 mg/dL (8.5-10.1); CREATININE 0.9 mg/dL (0.7-1.3); MAGNESIUM 2.4 mg/dL (1.8-2.4); POTASSIUM 4.2 mmol/L (3.5-5.1)
[2018-09-02 08:00] VITALS: BP 105/63
[2018-09-02 12:20] VITALS: BP 97/67
[2018-09-02 16:00] VITALS: BP 110/59
[2018-09-02 19:58] VITALS: BP 124/67
--- NOTE | 2018-09-02 20:24 | NUR ---
ASSUMED CARE OF PT AT 0700. PT A&OX4, UP AD MARK IN ROOM, AND STANDBY WITH WALKER IN HALLWAY. PT AMBULATED UNIT ONCE TODAY. PT HAD PAIN MANAGED BY PAIN MEDICATION HOWEVER HAS PAIN OF 6 AND GREATER IN RIGHT BACK/FLANK WITH MOVEMENT. PT HAD [address] BEAR NOTIFIED. CARDIOLOGY CONSULTED AND PT SEEN BY DR. MONTOYA. WILL CONT WITH POC.
[2018-09-03 03:49] VITALS: BP 124/76
[2018-09-03 05:44] LABS: HEMATOCRIT 31.1 % (42.0-52.0); HEMOGLOBIN 10.6 gm/dL (14.0-18.0); MCH 33.5 pg (26.0-34.0); MCHC 34.1 g/dL (28.0-37.0); MCV 98.3 fL (80.0-100.0); RBC 3.16 mil/uL (4.50-6.00); RDW 13.5 % (10.5-14.5); WBC 8.3 thou/uL (4.0-11.0)
[2018-09-03 05:59] LABS: CALCIUM 9.3 mg/dL (8.5-10.1); CREATININE 0.7 mg/dL (0.7-1.3); MAGNESIUM 2.2 mg/dL (1.8-2.4); POTASSIUM 3.9 mmol/L (3.5-5.1)
[2018-09-03 08:00] VITALS: BP 126/72
[2018-09-03 12:52] VITALS: BP 103/66
--- NOTE | 2018-09-03 17:39 | NUR ---
ASSUMED CARE OF PATIENT AT 0700. PT HAD A TEMP OF 100.2. TYLENOL GIVEN AND DRS. BEAR AND TIMMY NOTIFIED. COMPLAINS OF RIGHT FLANK PAIN WHICH IS TREATED PARTIALLY WITH HYDROCODONE AND TYLENOL. PATIENT COMPLAINS OF ANXIETY WHICH IS RELIEVED WITH ALPRAZOLAM. PATIENT REQUEST TREATMENT OF ALPRAZOLAM AT D/C, DR. BEAR ORDERED A PSYCH CONSULT. PATIENT TOOK A SHOWER AND AMBULATED THE UNIT MULTIPLE TIME WITHOUT ANY ASSIST. WILL CONTINUE TO MONITOR AND FOLLOW WITH POC.
[2018-09-03 19:45] VITALS: BP 113/81
[2018-09-04 04:09] LABS: HEMATOCRIT 32.5 % (42.0-52.0); MCH 33.5 pg (26.0-34.0); MCHC 33.9 g/dL (28.0-37.0); MCV 98.8 fL (80.0-100.0); RBC 3.29 mil/uL (4.50-6.00); RDW 13.4 % (10.5-14.5); WBC 8.8 thou/uL (4.0-11.0)
[2018-09-04 04:21] VITALS: BP 116/79
[2018-09-04 04:32] LABS: CALCIUM 9.3 mg/dL (8.5-10.1); CREATININE 0.7 mg/dL (0.7-1.3); MAGNESIUM 2.4 mg/dL (1.8-2.4); POTASSIUM 3.8 mmol/L (3.5-5.1)
--- NOTE | 2018-09-04 05:18 | NUR ---
END OF SHIFT NOTE: NO ACUTE EVENTS OVERNIGHT, VSS, AFEBRILE. ASSESSMENTS DOCUMENTED. TYLENOL AND NORCO GIVEN ONCE FOR PAIN OVERNIGHT ALONG W/ XANEX X1. PSYCH TO SEE PT TODAY FOR EVAL IN REGARDS TO XANEX. PT UP AD MARK W/ WALKER. RIGHT LATERAL FLANK INCISION DRESSING C/D/I, MINIMAL YELLOW DRAINAGE NOTED. CHEST TUBE SITES WNL. AM LABS WNL. CONTINUING TOWARDS GOALS AND POC W/ POSSIBLITY OF DISCHARGE SOON.
[2018-09-04 07:24] VITALS: BP 110/63
[2018-09-04 11:42] VITALS: BP 114/73
[2018-09-04 15:19] LABS: URINE BILIRUBIN NEGATIVE (Negative); URINE BLOOD NEGATIVE (Negative); URINE CLARITY CLEAR; URINE COLOR YELLOW; URINE GLUCOSE-RANDOM* NEGATIVE (Negative); URINE KETONES NEGATIVE (Negative); URINE LEUKOCYTES-REFLEX NEGATIVE (Negative); URINE NITRITE-REFLEX NEGATIVE (Negative); URINE PROTEIN (DIPSTICK) NEGATIVE (Negative)
[2018-09-04 16:40] VITALS: BP 121/78
--- NOTE | 2018-09-04 18:17 | NUR ---
SHIFT SUMMARY: ALERT AND ORIENTED AND VITALS STABLE. MEDICATED FOR PAIN WITH PRN MEDS. FEBRILE EARLIER TODAY, NORMAL THIS AFTERNOON. DRESSING ON INCISION INTACT. UP AD MARK TO THE BATHROOM AND TOLERATING DIET W/O NAUSEA. BLOOD CULTURES AND UA SENT TO LAB. WILL CONTINUE TO MONITOR CLOSELY.
[2018-09-04 21:13] VITALS: BP 134/84
[2018-09-04 21:19] VITALS: BP 136/68
[2018-09-05 05:05] VITALS: BP 129/82
--- NOTE | 2018-09-05 06:34 | NUR ---
ASSUMED CARE OF PATIENT AROUND 1900. PT C/O SIDE/BACK PAIN, HYDROCODONE 2 TABS ADMINISTERED AROUND 1999, ONE TAB ADMINISTERED AROUND 0500. PATIENT REPORTS PARTIAL RELIEF OF PAIN. BENADRYL AND MELATONIN ADMINISTERED FOR SLEEP, PATIENT ABLE TO SLEEP MOST OF NIGHT, REQUESTS MINIMAL INTERRUPTIONS FOR BETTER SLEEP, CARES GROUPED TOGETHER. PT EAGER TO GO HOME. PROGRESSING TOWARD GOALS, WILL CONTINUE TO MONITOR.
[2018-09-05 07:14] VITALS: BP 114/78
--- NOTE | 2018-09-05 17:08 | PATH ---
[facility] [address] [address] PATHOLOGY RPT PROCEDURE Name: ANNABEL MUNOZ Room #: 211-P ADM IN M.R.#: [id number] Admission: 08/14/18 Date of : 55 Discharge: Report #: [id number] Path Case #: [id number] Note [facility] Accession Number: [id number] TESTS RESULT FLAG UNITS REF RANGE LAB Clinician Provided Cytology Information No. of containers..01 Other (Miscellaneous) Source: 01 PLEURAL FLUID DIAGNOSIS: 02 PLEURAL FLUID INCONCLUSIVE. MESOTHELIAL CELLS ARE PRESENT. THIS INTERPRETATION INCLUDES EVALUATION OF A CELL BLOCK. NEGATIVE FOR MALIGNANT OR ATYPICAL EPITHELIAL CELLS. Comment: Numerous small lymphocytes are present within the blood tinged fluid. Although these may represent chronic inflammatory cells, portion of this specimen is sent for flow cytometric analysis to [facility]. An addendum will be issued subsequent to receiving those findings. Addendum: 02 This addendum is issues subsequent to receiving the flow cytometry analysis from [facility] ([id number]). The flow cytometry diagnosis is marked relative increase in eosinophils (35% of total cells). No immunophenotypic evidence of lymphoproliferative disorder identified. The comment states that the eosinophils have markedly increased and that it is a relatively nonspecific finding in pure florid which can be seen in a variety of reactive as well as infectious conditions in addition to malignancy. The B-cells analyzed were polyclonal and the T-cells analyzed showed no loss of T-cell antigens. Correlation with morphology, clinical history and other diagnostic information was recommended. . The originally rendered diagnosis remains unchanged. Please refer to the separate report for complete details. (IUV:pit 08/31/2018) . Professional and Technical services performed by [facility], [address] [place] [address]. . . . . . Special studies report received from [facility], [address] [place] / [address], on , labeled with their number [id number], dated 08/30/2018. . Flow Cytometry Analysis . [address] [address] PATHOLOGY RPT PROCEDURE Name: ANNABEL MUNOZ Room #: 211-P ADM IN M.R.#: [id number] Admission: 08/14/18 Date of : 55 Discharge: Report #: [id number] Path Case #: [id number] Diagnosis: Marked relative increase in eosinophils (35% of total cells). No flow immunophenotypic evidence of a lymphoproliferative disorder (see comments). . Comments: Eosinophils are markedly increased. This is a relatively nonspecific finding in pleural fluid, which has been reported to occur in a variety of reactive and infectious conditions, as well as with malignancy. B-cells are polyclonal and T-cells have no loss of T-cell antigens. There is no flow immunophenotypic evidence of a B- or T-cell lymphoproliferative disorder. Hodgkin lymphoma, some large cell lymphomas, and non-hematopoietic tumors cannot be excluded by flow cytometry. Correlation with morphology, clinical history and other diagnostic information is recommended. . Flow Differential (%) and Population Analysis: Lymphocytes: 8.5% T-cells (73% of lymphoid cells) show a CD4/CD8 ratio of about 5.4 without overt phenotypic abnormality. NK-cells (3% of lymphoid cells) are unremarkable. Mature B-cells (12% of lymphoid cells) are polyclonal (kappa:lambda 1.4). . Monocytes: 1.9% Monocytes co-express CD14 and CD64 without phenotypic abnormalities. . Granulocytes: 87.6% Granulocytes are phenotypically mature and without aberrant antigen expression. Eosinophils are markedly increased (35% of total cells). . CD45 Dim: 1.0% CD34+ cells are not detected. . CD45 Ne.0% Non-hematopoietic cells, erythroids and cell debris. . Markers Performed: CD2, CD3, CD4, CD5, CD7, CD8, CD10, CD11b, CD11c, CD13, CD14, CD15, CD16, CD19, CD20, CD23, CD33, CD34, CD38, CD41, CD45, CD56, CD64, CD71, CD117, CD138, CJ996q, FMC-7, HLA-DR, [place], Lambda (31 Markers) . Microscopic Description A cytospin slide was reviewed for QA purposes. . Lymphocytes CD2 73% CD3 73% CD4 63% [address] [address] PATHOLOGY RPT PROCEDURE Name: ANNABEL MUNOZ Room #: 211-P ADM IN M.R.#: [id number] Admission: 08/14/18 Date of : 55 Discharge: Report #: [id number] Path Case #: [id number] CD4+/CD8+ 5.4 CD5 74% CD7 65% CD8 13% CD10 1% CD11c 8% CD16 1% CD19 12% CD20 12% CD23 2% CD38 2% CD45 100% CD56 4% CD56+CD3- 3 [place] 7% Lambda 5% [place]/Lambda 1.4 . . Electronic Signature Kimber Willis M.D., Pathologist . . This test was developed and its performance characteristics determined by [facility]. It has not been cleared or approved by the U.S. Food and Drug Administration. The FDA has determined that such clearance or approval is not necessary. This test is used for clinical purposes. It should not be regarded as investigational or for research. This laboratory is certified under the Clinical Laboratory Improvement Amendments of 1988 (CLIA) as qualified to perform high complexity clinical testing. . Images that may be included within this report are employee relations representative of the patient but not all testing in its entirety and should not be used to render a result. . A complete copy of the report is on file. . Professional services performed by [facility], [address] [place] / [address]. Technical services performed by [facility], [address] [place] [address] / [address]. . (AMJ 08/31/2018) . AZ[facility]/08/31/2018 Addendum Electronically Signed by YURI ENCISO Signed out by: 02 Vida Alberto MD, Pathologist [facility] [address] [place] [address] PATHOLOGY RPT PROCEDURE Name: ANNABEL MUNOZ Room #: 211-P [facility] IN M.R.#: [id number] Admission: 08/14/18 Date of : 55 Discharge: Report #: [id number] Path Case #: [id number] NPI- [id number] Performed by: Misty Osullivan, [employer] [place] Operator ([facility]) Gross description: 01 35 ML, BRIGHT RED, /LCS FLAG LEGEND: L-Low Normal,H-High Normal,LL-Alert Low,HH-Alert High <-Panic Low,>-Panic High,A-Abnormal,AA-Critical Abnormal Performed at: [address] [place] [address] Roddy Michele MD, [address] [address] Vida Alberto MD, Specimen Comment: A courtesy copy of this report has been sent to Specimen Comment: [phone]. Specimen Comment: Report sent to Performed at: [address], [place], [place] [id number] MD Roddy Michele MD Phone: [phone]
[2018-09-05 19:30] VITALS: BP 134/78
[2018-09-06 04:03] VITALS: BP 147/99
[2018-09-06 08:12] VITALS: BP 117/85
--- NOTE | 2018-09-06 09:57 | NUR ---
Followup: pt not available to speak with at this time. Breakfast tray observed and pt ate nearly 75% of meal. Low nutrition risk
[2018-09-06 11:27] VITALS: BP 129/92
[2018-09-06] MEDS ORDERED: CLEOCIN HCL150 MG PO (14:13)
[2018-09-06] MEDS ORDERED: PROTONIX40 M1 PO (14:14)
[2018-09-06] MEDS ORDERED: PROVENTIL HFA6.7 G1 INH (14:14)
[2018-09-06 16:07] VITALS: BP 148/95
--- NOTE | 2018-09-06 17:37 | NUR ---
ASSUMED PATIENT CARE THIS AM. PATIENT UP AD MARK IN ROOM. A&OX4. NO N/V, N/T STATED. PAIN MANAGED WITH ORAL MEDICATION. PLAN TO DISCHARGE HOME THIS EVENING, SCRIPTS AND DISCHARGE PAPERWORK GIVEN TO PATIENT. NO COMPLAINTS STATED.
== END 2018-09-06 17:38 | disposition home or self-care (01) | DRG 853 ==
LOC: ER 10:45 → 3W 11:47 → EROBS 11:47 → 3W 13:35 → ER 13:35 → 3W 14:02 → ICU 08-28 12:30 → 2N 08-30 17:39
PROVIDERS: Internal Medicine; Internal Medicine Pulmonary Disease; Nurse Practitioner; Pediatrics; Physician Assistant; Specialist; Surgery Vascular Surgery; ADMIT Hospitalist
PROC: 0W993ZZ Drainage of Right Pleural Cavity, Percutaneous Approach (ICD-10-PCS; principal; 2018-08-25)
PROC: 0BCF4ZZ Extirpation of Matter from Right Lower Lung Lobe, Percutaneous Endoscopic Approach (ICD-10-PCS; 2018-08-28)
PROC: 06H03DZ Insertion of Intraluminal Device into Inferior Vena Cava, Percutaneous Approach (ICD-10-PCS; 2018-08-30)
PROC: 0W9930Z Drainage of Right Pleural Cavity with Drainage Device, Percutaneous Approach (ICD-10-PCS; 2018-08-31)
DX: A41.9 Sepsis, unspecified organism (principal); J18.9 Pneumonia, unspecified organism; J96.01 Acute respiratory failure with hypoxia; I26.99 Other pulmonary embolism without acute cor pulmonale; I47.2 Ventricular tachycardia; J94.2 Hemothorax; J44.0 Chronic obstructive pulmonary disease with (acute) lower respiratory infection; J93.83 Other pneumothorax; F33.0 Major depressive disorder, recurrent, mild; J90 Pleural effusion, not elsewhere classified; K92.1 Melena; I82.411 Acute embolism and thrombosis of right femoral vein; I10 Essential (primary) hypertension; F17.210 Nicotine dependence, cigarettes, uncomplicated; F41.1 Generalized anxiety disorder; R39.15 Urgency of urination; B96.89 Other specified bacterial agents as the cause of diseases classified elsewhere; D64.9 Anemia, unspecified; T38.0X5A Adverse effect of glucocorticoids and synthetic analogues, initial encounter; Y92.89 Other specified places as the place of occurrence of the external cause; Z87.828 Personal history of other (healed) physical injury and trauma; Z79.899 Other long term (current) drug therapy; Z86.711 Personal history of pulmonary embolism; Z71.6 Tobacco abuse counseling
CPT/HCPCS: 10078; 10081; 10879; 47405; 50010; 50101; 50386; 50455; 50497; 50558; 50607; 50649; 51301; 52265; 54118; 56524; 56525; 56526; 56527; 56528; 57092; 57093; 65020; 65040; 65105; 65129; 70005

== ENCOUNTER 2018-09-20 10:10 | Emergency (ER) | payer OTHER ==
[~2018-09-20] VITALS: Ht 180.3 cm; Wt 83.0 kg
[~2018-09-20 10:10] MED LIST changes: +CLEOCIN HCL150 MG PO; +PROTONIX40 M1 PO
[2018-09-20 11:54] LABS: ABSOLUTE NEUTROPHILS 4.2 thou/uL (1.4-8.2); BASOPHILS 0.9 % (0.0-2.0); EOSINOPHILS 1.2 % (0.0-3.0); HEMATOCRIT 37.3 % (42.0-52.0); HEMOGLOBIN 12.8 gm/dL (14.0-18.0); LYMPHOCYTES 26.1 % (24.0-44.0); MCH 32.6 pg (26.0-34.0); MCHC 34.4 g/dL (28.0-37.0); MCV 94.8 fL (80.0-100.0); MONOCYTES 10.8 % (1.0-8.0); PLATELET COUNT 208 thou/uL (150-400); RBC 3.93 mil/uL (4.50-6.00); RDW 14.3 % (10.5-14.5); WBC 6.9 thou/uL (4.0-11.0)
[2018-09-20] MEDS ORDERED: ELIQUIS5 MG PO (12:49)
[2018-09-20 13:05] VITALS: BP 164/92
== END 2018-09-20 13:06 | disposition home or self-care (01) ==
LOC: ER 10:10
PROVIDERS: Emergency Medicine
DX: I26.99 Other pulmonary embolism without acute cor pulmonale (principal); R06.09 Other forms of dyspnea; I10 Essential (primary) hypertension; F17.200 Nicotine dependence, unspecified, uncomplicated; Z86.718 Personal history of other venous thrombosis and embolism

== ENCOUNTER 2018-10-31 22:23 | Emergency (ER) | payer OTHER ==
[~2018-10-31] VITALS: Ht 180.3 cm; Wt 83.9 kg
[~2018-10-31 22:23] MED LIST changes: +ELIQUIS5 MG PO
[2018-10-31 23:31] LABS: ABSOLUTE NEUTROPHILS 5.8 thou/uL (1.4-8.2); BASOPHILS 0.8 % (0.0-2.0); EOSINOPHILS 0.7 % (0.0-3.0); HEMATOCRIT 41.3 % (42.0-52.0); MCH 30.9 pg (26.0-34.0); MCHC 33.8 g/dL (28.0-37.0); MCV 91.4 fL (80.0-100.0); MONOCYTES 9.7 % (1.0-8.0); PLATELET COUNT 201 thou/uL (150-400); POLYS 60.8 % (36.0-66.0); RBC 4.52 mil/uL (4.50-6.00); RDW 14.5 % (10.5-14.5); WBC 9.6 thou/uL (4.0-11.0)
[2018-10-31 23:39] LABS: ANION GAP 8 mmol/L (7-16); BUN 14 mg/dL (7-18); CALCIUM 9.3 mg/dL (8.5-10.1); CHLORIDE 105 mmol/L (98-107); CO2 25 mmol/L (21-32); CREATININE 0.8 mg/dL (0.7-1.3); GLUCOSE 121 mg/dL (74-106); SODIUM 138 mmol/L (136-145)
[2018-10-31 23:40] LABS: POTASSIUM 4.2 mmol/L (3.5-5.1)
[2018-10-31 23:48] LABS: ALBUMIN 4.1 g/dL (3.4-5.0); APTT 21.7 Seconds (24.5-32.8); D-DIMER 1.3 ug/mLFEU (0.19-0.50); MAGNESIUM 2.1 mg/dL (1.8-2.4); SGOT 37 U/L (15-37); SGPT 31 U/L (30-65); TOTAL BILIRUBIN 0.5 mg/dL (<0.1-1.0); TOTAL PROTEIN 7.1 g/dL (6.4-8.2); TROPONIN-I <0.06 ng/mL (<0.06)
[2018-11-01] MEDS ORDERED: ELIQUIS5 M1 PO (00:51)
[2018-11-01 04:30] VITALS: BP 173/100
--- NOTE | 2018-11-01 08:06 | EKG ---
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 : 1955 Requested By: Michael Sawant Order Number: [id number] MD: Rikki Landin Measurements Intervals [place] Rate: 95 P: 46 UT: 206 QRS: 44 QRSD: 96 T: -8 QT: 356 QTc: 448 Interpretive Statements Sinus rhythm Nonspecific ST and T wave abnormality Compared to ECG 08/14/2018 11:07:51 Sinus tachycardia no longer present Electronically Signed On 11-01-2018 8:06:02 CDT by Rikki Landin [email or web address] ��������������������������������������������� <ELECTRONICALLY SIGNED> ���������������������������������������� By: Rikki Landin MD, [facility] ��������������������������������������������� 11/01/18 0806 [id number] Rikki Landin MD, FACC /EPI
== END 2018-11-01 04:56 | disposition home or self-care (01) ==
LOC: ER 22:23
PROVIDERS: Emergency Medicine
DX: M79.604 Pain in right leg (principal); M79.605 Pain in left leg; J98.11 Atelectasis; I10 Essential (primary) hypertension; Z86.711 Personal history of pulmonary embolism; Z87.01 Personal history of pneumonia (recurrent); Z86.718 Personal history of other venous thrombosis and embolism; Z87.891 Personal history of nicotine dependence; Z87.09 Personal history of other diseases of the respiratory system